=== PATIENT | female | born 1950 | race Caucasian/White ===

== ENCOUNTER → 2020-08-22 | Outpatient (CLI) | payer MEDICARE ==
[~2020-08-22] MED LIST: ALENDRONATE SOD70 MG PO; ANTIVERT 25MG T25 MG PO; ASPIR 8181 MG PO; CALCIUM 600 +1 EA10 PO; CALCIUM500 MG PO; LOSARTAN-HCTZ1 EACH PO; LOVASTATIN10 MG PO; LOVASTATIN20 MG PO; MULTIPLE VITAM1 EACH PO; NORVASC 5 MG TAB5 MG PO; OMNICEF 300 MG300 MG PO; PROTONIX40 MG PO; RANITIDINE HCL150 M1 PO; ZANAFLEX4 MG PO
== END ==
LOC: KOH-I 10:56
DX: Z12.2 Encounter for screening for malignant neoplasm of respiratory organs (principal); F17.210 Nicotine dependence, cigarettes, uncomplicated
CPT/HCPCS: 71271

== ENCOUNTER → 2021-03-05 | Outpatient (CLI) | payer MEDICARE, OTHER | LOC: KOH-I 08:24 | DX: M51.16 Intervertebral disc disorders with radiculopathy, lumbar region (principal); M48.061 Spinal stenosis, lumbar region without neurogenic claudication | CPT/HCPCS: 72148 ==

== ENCOUNTER → 2021-10-02 | Outpatient (CLI) | payer MEDICARE | LOC: KOH-I 10:24 | DX: F17.210 Nicotine dependence, cigarettes, uncomplicated (principal); R91.8 Other nonspecific abnormal finding of lung field | CPT/HCPCS: 71271 ==

== ENCOUNTER → 2022-01-20 | Outpatient (CLI) | payer MEDICARE | LOC: KOH-I 09:08 | DX: M48.062 Spinal stenosis, lumbar region with neurogenic claudication (principal); M79.606 Pain in leg, unspecified; M51.36 Other intervertebral disc degeneration, lumbar region; M51.37 Other intervertebral disc degeneration, lumbosacral region | CPT/HCPCS: 72148 ==

== ENCOUNTER → 2022-02-27 | Outpatient (CLI) | payer MEDICARE | LOC: HEART 5 11:25 | DX: J44.9 Chronic obstructive pulmonary disease, unspecified (principal); R94.2 Abnormal results of pulmonary function studies | CPT/HCPCS: 94060; 94729 ==

== ENCOUNTER → 2022-02-27 | Outpatient (CLI) | payer MEDICARE | LOC: LAB 14:16 | DX: R09.02 Hypoxemia (principal); J44.9 Chronic obstructive pulmonary disease, unspecified | CPT/HCPCS: 36600; 71046; 82803 ==

== ENCOUNTER 2022-04-22 09:47 | Inpatient (IN) | payer MEDICARE, MEDICAID ==
[~2022-04-22] VITALS: Ht 160 cm; Wt 96.6 kg
[~2022-04-22 09:47] MED LIST changes: -ANTIVERT 25MG T25 MG PO
[2022-04-22 10:53] LABS: HEMOGLOBIN 10.6 gm/dl (12.3-15.3); RED BLOOD COUNT 3.7 M/UL (4.00-5.10)
[2022-04-22 11:20] LABS: BUN/CREATININE RATIO 22 (0-10)
[2022-04-22] MEDS ORDERED: NORVASC10 MG PO (15:40)
[2022-04-22] MEDS ORDERED: LOVASTATIN40 MG PO (15:41)
[2022-04-22] MEDS ORDERED: MULTI-VITAMIN1 EACH PO (15:41)
[2022-04-22] MEDS ORDERED: PERFOROMIS20 MCG/2 M INH (15:42)
[2022-04-22] MEDS ORDERED: YUPELRI175 MCG/3 NEB (15:42)
[2022-04-22] MEDS ORDERED: MECLIZINE HCL25 M1 PO (17:46)
[2022-04-23] MEDS ORDERED: OMNICEF 300 MG300 MG PO (18:58)
[2022-04-23] MEDS ORDERED: COZAAR100 MG PO (18:58)
[2022-04-23] MEDS ORDERED: IPRAT-ALBUT 0.5-3 ML NEB (18:58)
[2022-04-23] MEDS ORDERED: LASIX20 MG PO (19:01)
== END 2022-04-23 19:17 | disposition home or self-care (01) | DRG 291 ==
LOC: ER1 09:47 → M/S 14:30 → CDU 14:30 → M/S 20:40
PROVIDERS: Physician Assistant; ADMIT Internal Medicine
DX: I11.0 Hypertensive heart disease with heart failure (principal); I50.41 Acute combined systolic (congestive) and diastolic (congestive) heart failure; Z20.822 Contact with and (suspected) exposure to COVID-19; J96.21 Acute and chronic respiratory failure with hypoxia; J96.22 Acute and chronic respiratory failure with hypercapnia; J18.9 Pneumonia, unspecified organism; I45.2 Bifascicular block; J44.1 Chronic obstructive pulmonary disease with (acute) exacerbation; I45.10 Unspecified right bundle-branch block; R73.03 Prediabetes; E78.5 Hyperlipidemia, unspecified; F17.210 Nicotine dependence, cigarettes, uncomplicated; D64.9 Anemia, unspecified; M81.0 Age-related osteoporosis without current pathological fracture; E66.9 Obesity, unspecified; K21.9 Gastro-esophageal reflux disease without esophagitis; G89.29 Other chronic pain; M54.50 Low back pain, unspecified; Z99.81 Dependence on supplemental oxygen; Z90.710 Acquired absence of both cervix and uterus; Z98.890 Other specified postprocedural states; Z80.51 Family history of malignant neoplasm of kidney; Z98.1 Arthrodesis status; Z88.8 Allergy status to other drugs, medicaments and biological substances; Z68.37 Body mass index [BMI] 37.0-37.9, adult
CPT/HCPCS: 36600; 71045; 80053; 81001; 82550; 82553; 82803; 83605; 83880; 84439; 84443; 84484; 85025; 87040; 87086; 93005; 94640; 94664; 94760; 96374; 96375; 99285; J0456; J0696; J1940; J2930; J7030; U0002